=== PATIENT | male | born 1955 | race Caucasian/White ===

== ENCOUNTER 2024-11-04 06:30 | Day surgery (SDC) | payer MEDICARE, OTHER, SELFPAY | END 2024-11-04 15:28 | disposition home or self-care (01) | LOC: GI 06:30 | PROVIDERS: ATTENDING PHYSICIAN Internal Medicine Gastroenterology | DX: Z12.11 Encounter for screening for malignant neoplasm of colon (principal); R19.5 Other fecal abnormalities; K57.30 Diverticulosis of large intestine without perforation or abscess without bleeding; K64.8 Other hemorrhoids; K63.5 Polyp of colon; Z80.0 Family history of malignant neoplasm of digestive organs | CPT/HCPCS: 45385; 88305 ==